=== PATIENT | male | born 1965 | race African-American/Black ===

== ENCOUNTER 2025-05-29 02:43 | Emergency (ER) | payer OTHER ==
[~2025-05-29] VITALS: Ht 182.9 cm; Wt 109.0 kg
--- NOTE | 2025-05-29 03:12 | ED.PDOC ---
HPI Comments 60-year-old male who came to ER via EMS for chest pains. Patient does have history of hypertension and hypothyroid disease. For the past 2 hours patient has been having left-sided chest pains, tight, constant, radiating to his neck, left shoulder. Patient was given 324 aspirin and 0.4 nitro while EN route to the emergency room Chief Complaint: Chest Pain Time Seen by MD: 03:12 Reviewed Notes: Nurses Notes Allergies: Coded Allergies: NO KNOWN ALLERGIES (Unverified , 05/29/25) Information Source: Patient Mode of Arrival: Ambulatory Severity: Moderate Past Medical History PAST MEDICAL HISTORY: HTN, Thyroid (Hypo) Surgical History: Denies all surgeries Family History Family History: Reviewed,noncontributory to illness Social History Smoker: Non-Smoker Alcohol: Denies ETOH Use Drugs: Denies Drug Use Lives In: Home Constitutional: denies: chills, diaphoresis, fatigue, fever, malaise, sweats, weakness, others EENTM: denies: blurred vision, double vision, ear bleeding, ear discharge, ear drainage, ear pain, ear ringing, eye pain, eye redness, hearing loss, mouth pain, mouth swelling, nasal discharge, nose bleeding, nose congestion, nose pain, photophobia, tearing, throat pain, throat swelling, voice changes, others Respiratory: denies: cough, hemoptysis, orthopnea, SOB at rest, shortness of breath, SOB with excertion, stridor, wheezing, others Cardiovascular: denies: chest pain, dizzy spells, diaphoresis, Dyspnea on exertion, edema, irregular heart beat, left arm pain, lightheadedness, palpitations, PND, syncope, others Gastrointestinal: denies: abdomen distended, abdominal pain, blood streaked bowels, constipated, diarrhea, dysphagia, difficulty swallowing, hematemesis, melena, nausea, poor appetite, poor fluid intake, rectal bleeding, rectal pain, vomiting, others Genitourinary: denies: burning, dysuria, flank pain, frequency, hematuria, incontinence, penile discharge, penile sore, pain, testicle pain, testicle swelling, urgency, others Neurological: denies: dizziness, fainting, headache, left sided numbness, left sided weakness, numbness, paresthesia, pre-existing deficit, right sided numbness, right sided weakness, seizure, speech problems, tingling, tremors, weakness, others Musculoskeletal: denies: back pain, gout, joint pain, joint swelling, muscle pain, muscle stiffness, neck pain, others Integumetry: denies: bruises, change in color, change in hair/nails, dryness, laceration, lesions, lumps, rash, wounds, others Allergic/Immunocompromised: denies: Difficulty Healing, Frequent Infections, Hives, Itching, others Hematologic/Lymphatic: denies: anemia, blood clots, easy bleeding, easy bruising, swollen glands, others Endocrine: denies: excessive hunger, excessive sweating, excessive thirst, excessive urination, flushing, intolerance to cold, intolerance to heat, unexplained weight gain, unexplained weight loss, others Psychiatric: denies: anxiety, bipolar disorder, depression, hopeless, panic disorder, schizophrenia, sleepless, suicidal, others Physical Exam General Appearance: No Apparent Distress, Normal HEENT: Normal ENT Inspection, Pharynx Normal, TMs Normal Neck: Full Range of Motion, Non-Tender, Normal, Normal Inspection Respiratory: Chest Non-Tender, Lungs Clear, No Accessory Muscle Use, No Respiratory Distress, Normal Breath Sounds Cardiovascular: No Edema, No JVD, No Murmur, No Gallop, Normal Peripheral Pulses, Regular Rate/Rhythm Breast Exam: Deferred Gastrointestinal: No Organomegaly, Non Tender, No Pulsatile Mass, Normal Bowel Sounds, Soft Genitalia: Deferred Pelvic: Deferred Rectal: Deferred Extremities: No calf tenderness, Normal capillary refill, Normal inspection, Normal range of motion, Non-tender, No pedal edema Musculoskeletal : Apperance: Normal Neurologic: Alert, 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 Was a procedure done?: No CP Differential Dx Differential Diagnosis: A-fib, A-Flutter, Angina, Heart Failure, MAT, IN, PAC's, V-Fib, V-Tach, Other Differential Diagnosis: Angina, Chest Wall Pain, Costochondritis, Esophageal reflux/spasm, Gastritis, Myocardial Infarction X-Ray, Labs, Meds, VS Vital Signs Date Time Temp Pulse Resp B/P (MAP) Pulse Ox O2 Delivery O2 Flow Rate FiO2 05/29/25 03:28 98.1 90 18 91/52 (65) 97 98.1 05/29/25 03:28 90 18 97 Nasal Cannula* 2 28 05/29/25 02:47 97.0 98 18 107/56 91 97.0 Lab Test 05/29/25 03:17 Range/Units White Blood Count 7.1 4.4-10.8 10^3/uL Red Blood Count 4.52 4.5-5.90 10^6/uL Hemoglobin 14.4 13.5-17.5 g/dL Hematocrit 42.5 41.0-53.0 % Mean Corpuscular Volume 94.1 80.0-100.0 fL Mean Corpuscular Hemoglobin 31.9 28.0-32.0 pg Mean Corpuscular Hemoglobin Concent 33.9 32.0-36.0 g/dL Red Cell Distribution Width 13.1 11.8-14.3 % Platelet Count 223 140-450 10^3/uL Mean Platelet Volume 7.5 6.9-10.8 fL Neutrophils (%) (Auto) 37.0-80.0 % Lymphocytes (%) (Auto) 10.0-50.0 % Monocytes (%) (Auto) 0.0-12.0 % Basophils (%) (Auto) 0.0-2.0 % Neutrophils # (Auto) 1.6-8.6 10 ^3/uL Lymphocytes # (Auto) 0.4-5.4 10 ^3/uL Monocytes # (Auto) 0-1.3 10 ^3/uL Differential Total Cells Counted Pending Neutrophils % (Manual) Pending Band Neutrophils % (Manual) Pending Lymphocytes % (Manual) Pending Monocytes % (Manual) Pending Eosinophils % (Manual) Pending Basophils % (Manual) Pending Metamyelocytes % (manual) Pending Myelocytes % (Manual) Pending Promyelocytes % (Manual) Pending Blast Cells % (Manual) Pending Reactive Lymphocytes Pending Platelet Estimate Pending Prothrombin Time Pending Prothrombin Time INR Pending Activated Partial Thromboplast Time Pending Sodium Level 132 L 136-145 mmol/L Potassium Level 3.0 L 3.5-5.1 mmol/L Chloride Level 95 L 98-107 mmol/L Carbon Dioxide Level 24 20-31 mmol/L Anion Gap 13 5-15 Blood Urea Nitrogen 12 9-23 mg/dL Creatinine 1.14 0.700-1.30 mg/dL Glomerular Filtration Rate Calc 73 >90 mL/min BUN/Creatinine Ratio 10.5 10.0-20.0 Serum Glucose 128 H 74-106 mg/dL Calcium Level 9.1 8.7-10.4 mg/dL Total Bilirubin 0.6 0.2-1.0 mg/dL Aspartate Amino Transferase (AST) 27 13-40 U/L Alanine Aminotransferase (ALT) 32 7-40 U/L Alkaline Phosphatase 86 46-116 U/L Troponin I High Sensitivity < 3 L </=54 ng/L B-Type Natriuretic Peptide 4.88 0-100 pg/mL Total Protein 6.9 5.7-8.2 g/dL Albumin 4.2 3.2-4.8 g/dL Thyroid Stimulating Hormone (TSH) Pending Free Thyroxine (T4) Calculated Pending Current Medications Medications (Trade) Dose Ordered Sig/Lizbet Route Start Time Stop Time Status Last Admin Aspirin 162 mg ONCE ONCE PO 05/29/25 03:15 05/29/25 03:16 DC 05/29/25 03:15 Ondansetron HCl (Zofran) 4 mg ONCE ONCE IV 05/29/25 03:15 05/29/25 03:16 DC 05/29/25 03:34 Time of 1ST Reevaluation: 03:08 Reevaluation 1ST: Unchanged Patient Education/Counseling: Diagnosis, Treatment Family Education/Counseling: No Family Present SEPSIS Sepsis Screen Date sepsis recognized/suspect: May 29, 2025 Time Sepsis recognized/suspect: 253 Recent Procedure: No On Antibiotic Therapy: No Respiratory Rate >20: No Heart Rate >90: No Temp<36 C (96.8 F) or >38.3 C: No SBP <90 or MAP <65 mmHG: No New Acute Mental Status Change: No Is the patient on CPAP, BIPAP,: No Physician Orders Complete Blood Count (05/29/25 02:59) Troponin-I Hs (05/29/25 03:59) Troponin-I Hs (05/29/25 05:59) Electrocardigram (05/29/25 03:59) Electrocardigram (05/29/25 05:59) Chest Portable (05/29/25 03:07) PTPTT (05/29/25 03:07) Thyroid Stimulating Hormone (05/29/25 03:09) Free T4 (Free Thyroxine) (05/29/25 03:09) Manual Differential (05/29/25 03:17) Vital Signs Date Time Temp Pulse Resp B/P (MAP) Pulse Ox O2 Delivery O2 Flow Rate FiO2 05/29/25 03:28 98.1 90 18 91/52 (65) 97 98.1 05/29/25 03:28 90 18 97 Nasal Cannula* 2 28 05/29/25 02:47 97.0 98 18 107/56 91 97.0 Laboratory Tests Test 05/29/25 03:17 White Blood Count 7.1 10^3/uL (4.4-10.8) Medications Medications Dose Ordered Sig/Lizbet Route Start Time Stop Time Status Last Admin Dose Admin Aspirin 162 mg ONCE ONCE PO 05/29/25 03:15 05/29/25 03:16 DC 05/29/25 03:15 Ondansetron HCl 4 mg ONCE ONCE IV 05/29/25 03:15 05/29/25 03:16 DC 05/29/25 03:34 Departure 1 Departure Time of Disposition: 04:35 Impression: Primary Impression: Acute coronary syndrome Disposition: 01 HOME / SELF CARE / HOMELESS Condition: Stable Discharged With: Self Comments 60 yo male with h/o hypothyroid and HTN but has not had a thorough cardiac workup now with suspicious chest pain. initial troponin normal . given aspirin and morphine. will need admission for supportive care and further workup Critical Care Note Critical Care Time?: Yes (35 min-critical care time only) Critical care comment: Total critical care time: Approximately 36 minutes Due to a high probability of clinically significant, life threatening deterioration, the patient required my highest level of preparedness to intervene emergently and I personally spent this critical care time directly and personally managing the patient. This critical care time included obtaining a history; examining the patient; pulse oximetry; ordering and review of studies; arranging urgent treatment with development of a management plan; evaluation of patient's response to treatment; frequent reassessment; and, discussions with other providers. This critical care time was performed to assess and manage the high probability of imminent, life-threatening deterioration that could result in multi-organ failure. It was exclusive of separately billable procedures and treating other patients. Stability Stability form required: No Heart Score Heart Score: Heart Score Response (Comments) Value History Moderate Suspicious 1 EKG Repolarization Disturb 1 Age 45-64 1 Risk Factors 1 or 2 risk factors 1 Troponin Normal limit 0 Total 4 I personally scribed for RAJIV STERN MD ([email or web address]) on 05/29/25 at 03:12. Electronically submitted by Elias Armstrong ([facility]). RAJIV STERN MD May 29, 2025 03:12
[2025-05-29] MEDS: MORPHINE SULFATE 4 MG/ML SYR/VIAL IV ONE ×2 (03:15→09:05)
[2025-05-29 03:28] VITALS: PULSE 90; RESP 18; O2SAT 97
[2025-05-29] MEDS: ONDANSETRON HCL 4 MG/2 ML VIAL IV ONE ×2 (03:34→09:04)
[2025-05-29 03:42] LABS: Hematocrit 42.5 % (41.0-53.0); Hemoglobin 14.4 g/dL (13.5-17.5); Mean Corpuscular Hemoglobin 31.9 pg (28.0-32.0); Mean Corpuscular Volume 94.1 fL (80.0-100.0)
[2025-05-29 04:06] LABS: Alanine Aminotransferase 32 U/L (7-40); Alkaline Phosphatase 86 U/L (46-116); Anion Gap 13 (5-15); BUN/Creatinine Ratio 10.5 (10.0-20.0); Blood Urea Nitrogen 12 mg/dL (9-23); Calcium 9.1 mg/dL (8.7-10.4); Carbon Dioxide 24 mmol/L (20-31); Total Protein 6.9 g/dL (5.7-8.2)
[2025-05-29 04:07] LABS: Albumin 4.2 g/dL (3.2-4.8); Bilirubin, Total 0.6 mg/dL (0.2-1.0); Chloride 95 mmol/L (98-107); Glucose 128 mg/dL (74-106); Potassium 3.0 mmol/L (3.5-5.1); Sodium 132 mmol/L (136-145)
--- NOTE | 2025-05-29 04:31 | ECG ---
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
[2025-05-29 04:34] LABS: Total Cells Counted 100.0 (100)
[2025-05-29 05:02] LABS: INR 0.97 (0.9-1.15); Partial Thromboplastin Time 27.3 SEC (24.5-34.5); Prothrombin Time 10.3 sec (9.3-11.8)
[2025-05-29] MEDS: POTASSIUM CHL 20 Meq TABLET PO ONE (06:14)
[2025-05-29] MEDS: AZITHROMYCIN 250 MG TAB PO ONE (06:14)
--- NOTE | 2025-05-29 06:25 | DVH ---
CHEST RADIOGRAPH INDICATION: chest pain TECHNIQUE: Single frontal view of the chest was obtained COMPARISON: None IMPRESSION: Heart appears normal in size. Bilateral patchy airspace opacities moderate on the left concerning for infectious process, mild on the right. No sizable effusion or pneumothorax.
[2025-05-29 08:21] VITALS: PULSE 107; RESP 26; O2SAT 95
[2025-05-29 09:09] VITALS: BP 130/94; PULSE 113; RESP 23; TEMP 98.1; O2SAT 95
--- NOTE | 2025-05-29 10:11 | ECG ---
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
== END 2025-05-29 09:38 | disposition short-term general hospital (02) ==
LOC: ER 02:43 → EDBD 02:43 → ER 09:35
DX: I24.9 Acute ischemic heart disease, unspecified (principal); M25.512 Pain in left shoulder; I10 Essential (primary) hypertension; E03.9 Hypothyroidism, unspecified; Z79.899 Other long term (current) drug therapy
CPT/HCPCS: 36415; 71045; 80053; 83880; 84439; 84443; 84484; 85007; 85027; 85610; 85730; 93005; 96365; 96375; 96376; 99285; J0696; J2270; J2405; 99291